=== PATIENT | female | born 1980 | race Hispanic/Latino ===

== ENCOUNTER → 2020-12-20 | Outpatient (CLI) | payer MEDICAID ==
[~2020-12-20] VITALS: Ht 22.9 cm; Wt 161.3 kg
[~2020-12-20] MED LIST: FERR-82 PO; PNV71COM PO; PREN1TAB63 PO; PROM25TA7 PO
== END | disposition home or self-care (01) ==
LOC: DTH 10:51
PROVIDERS: ATTEND Surgery
DX: E66.01 Morbid (severe) obesity due to excess calories (principal); I10 Essential (primary) hypertension; K21.9 Gastro-esophageal reflux disease without esophagitis; E11.9 Type 2 diabetes mellitus without complications; E78.00 Pure hypercholesterolemia, unspecified
CPT/HCPCS: 97802

== ENCOUNTER → 2021-02-10 | Outpatient (CLI) | payer OTHER | END | disposition home or self-care (01) | LOC: DTH 09:15 | PROVIDERS: ATTEND Surgery | DX: E66.01 Morbid (severe) obesity due to excess calories (principal); I10 Essential (primary) hypertension; K21.9 Gastro-esophageal reflux disease without esophagitis; E11.9 Type 2 diabetes mellitus without complications; E78.00 Pure hypercholesterolemia, unspecified | CPT/HCPCS: 97803 ==

== ENCOUNTER → 2021-02-23 | Outpatient (CLI) | payer OTHER | END | disposition home or self-care (01) | LOC: DTH 10:10 | PROVIDERS: ATTEND Surgery | DX: E66.9 Obesity, unspecified (principal) | CPT/HCPCS: 97803 ==

== ENCOUNTER → 2021-04-25 | Outpatient (CLI) | payer OTHER | END | disposition home or self-care (01) | LOC: DTH 10:04 | PROVIDERS: ATTEND Surgery | DX: K21.9 Gastro-esophageal reflux disease without esophagitis (principal); E11.9 Type 2 diabetes mellitus without complications; I10 Essential (primary) hypertension; E78.00 Pure hypercholesterolemia, unspecified; E66.01 Morbid (severe) obesity due to excess calories | CPT/HCPCS: 97803 ==

== ENCOUNTER → 2021-06-14 | Outpatient (CLI) | payer OTHER | END | disposition home or self-care (01) | LOC: DTH 10:04 | PROVIDERS: ATTEND Surgery | DX: E66.01 Morbid (severe) obesity due to excess calories (principal); M19.91 Primary osteoarthritis, unspecified site; K21.9 Gastro-esophageal reflux disease without esophagitis; E11.9 Type 2 diabetes mellitus without complications; E78.00 Pure hypercholesterolemia, unspecified | CPT/HCPCS: 97803 ==

== ENCOUNTER 2021-06-26 06:57 | Day surgery (SDC) | payer MEDICAID ==
[2021-06-26] VITALS (8 sets, daily range): BP systolic 106–137; BP diastolic 58–90
[~2021-06-26] VITALS: Ht 175.3 cm; Wt 158.3 kg
[~2021-06-26 06:57] MED LIST changes: +0.9%NACL 1000ML 1,000 ML IV ONE; -FERR-82 PO; +MULT-1203 PO; -PNV71COM PO; -PREN1TAB63 PO; -PROM25TA7 PO
[2021-06-26] MEDS ORDERED: PROPOFOL 10 MG/ML 20ML VIAL IV ONE (08:00)
[2021-06-26] MEDS ORDERED: LIDOCAINE HCL 1% 20 ML VIAL ONE (08:00)
== END 2021-06-26 09:00 | disposition home or self-care (01) ==
LOC: DAH 06:57
PROVIDERS: ATTEND Surgery
DX: K21.9 Gastro-esophageal reflux disease without esophagitis (principal); E66.01 Morbid (severe) obesity due to excess calories; Z98.891 History of uterine scar from previous surgery; Z83.3 Family history of diabetes mellitus; Z82.49 Family history of ischemic heart disease and other diseases of the circulatory system; Z68.43 Body mass index [BMI] 50.0-59.9, adult; Z79.899 Other long term (current) drug therapy; Z98.84 Bariatric surgery status; Z87.891 Personal history of nicotine dependence
CPT/HCPCS: 43235; 71045; 82948; 93005; A4215 ×2; A4221; A4222; A4223; A4606; A4620; A4663; J3490; J7030; J2704

== ENCOUNTER 2021-07-03 18:43 | Emergency (ER) | payer MEDICAID ==
[~2021-07-03] VITALS: Ht 175.3 cm; Wt 158.3 kg
[~2021-07-03 18:43] MED LIST changes: -0.9%NACL 1000ML 1,000 ML IV ONE
[2021-07-03 18:45] VITALS: BP 137/86
[2021-07-03] MEDS ORDERED: KETOROLAC 30MG VIAL (30MG/ML) IM ONE (21:30)
[2021-07-03] MEDS ORDERED: HYDROCODONE/ACETAMINOPHEN 5/325 MG TAB PO ONE (21:30)
[2021-07-03] MEDS ORDERED: ACET1TAB25 PO (23:20)
[2021-07-03] MEDS ORDERED: IBUP-2070 PO (23:20)
== END 2021-07-03 23:30 | disposition home or self-care (01) ==
LOC: EDH 18:43
DX: M71.22 Synovial cyst of popliteal space [Baker], left knee (principal); M25.561 Pain in right knee
CPT/HCPCS: 93971; 96372; 99284; J1885

== ENCOUNTER → 2021-09-25 | Outpatient (CLI) | payer MEDICAID ==
[~2021-09-25] VITALS: Ht 175.3 cm; Wt 156.7 kg
[~2021-09-25] MED LIST changes: +ACET1TAB25 PO; +IBUP-2070 PO
[2021-09-25 13:48] LABS: BASOPHILS % (AUTO) 0.5 % (0.0-5.0); HEMATOCRIT 40.1 % (36-48); LYMPHOCYTES % (AUTO) 26.1 % (21.0-51.0); MEAN CORPUSCULAR HEMOGLOBIN 28.9 pg (27.0-33.0); MEAN CORPUSCULAR HGB CONC 32.7 g/dL (32.0-36.0); MEAN CORPUSCULAR VOLUME 88.5 fL (79-99); MONOCYTES % (AUTO) 4.8 % (3.0-13.0); NEUTROPHILS % (AUTO) 66.4 % (40.0-77.0); PLATELET COUNT (AUTO) 290 K/uL (130-400); RED BLOOD CELL COUNT(AUTO) 4.53 MIL/uL (4.00-5.50); RED CELL DISTRIBUTION WIDTH 12.1 % (11.0-15.5); WHITE BLOOD COUNT (AUTO) 9.6 K/uL (4.8-10.8)
[2021-09-25 13:55] LABS: CREATININE 0.5 mg/dL (0.5-1.5); POTASSIUM 3.8 mmol/L (3.5-5.1)
[2021-09-25 14:27] LABS: INR 1.03 (0.85-1.15); PROTHROMBIN TIME 11.2 SEC (9.6-11.6)
[2021-09-29 08:41] VITALS: BP 168/80
== END | disposition home or self-care (01) ==
LOC: DAH 10:00 → EDSTATUS 11:30
PROVIDERS: ATTEND Surgery
DX: Z01.812 Encounter for preprocedural laboratory examination (principal); K21.9 Gastro-esophageal reflux disease without esophagitis; E66.01 Morbid (severe) obesity due to excess calories; Z68.43 Body mass index [BMI] 50.0-59.9, adult; Z20.822 Contact with and (suspected) exposure to COVID-19
CPT/HCPCS: 36415; 80048; 84703; 85025; 85610; 86850; 86900; 86901; 87635; A6260

== ENCOUNTER 2022-01-14 01:05 | Emergency (ER) | payer MEDICAID ==
[~2022-01-14] VITALS: Ht 175.3 cm; Wt 164.7 kg
[~2022-01-14 01:05] MED LIST changes: +ACET-2079 PO; -ACET1TAB25 PO
[2022-01-14] MEDS ORDERED: KETOROLAC 60 MG VIAL (30MG/ML) IM ONE (02:00)
[2022-01-14] MEDS ORDERED: HYDROCODONE/ACETAMINOPHEN 10/325 MG TAB PO ONE (02:00)
[2022-01-14] MEDS ORDERED: ACET-2079 PO (02:22)
[2022-01-14] MEDS ORDERED: IBUP-2070 PO (02:22)
[2022-01-14 02:23] VITALS: BP 134/66
[2022-01-14] MEDS ORDERED: MORPHINE 2 MG SYG IM ONE (02:30)
== END 2022-01-14 02:40 | disposition home or self-care (01) ==
LOC: EDH 01:05
DX: M25.561 Pain in right knee (principal); R22.41 Localized swelling, mass and lump, right lower limb
CPT/HCPCS: 93971; 96372 ×2; 99284; J1885